=== PATIENT | female | born 1975 ===

== ENCOUNTER 2022-02-09 17:09 | Inpatient (IN) | payer OTHER ==
[~2022-02-09] VITALS: Ht 170.2 cm; Wt 77.1 kg
[2022-02-09] MEDS ORDERED: NEURONTIN800 MG (17:17)
[2022-02-09] MEDS ORDERED: HUMALOG100 UNIT/2 (17:17)
[2022-02-16] MEDS ORDERED: TRAMADOL HCL50 MG PO (09:59)
[2022-02-16] MEDS ORDERED: MORGIDOX100 MG PO (09:59)
== END 2022-02-16 11:46 | disposition home or self-care (01) | DRG 601 ==
LOC: ER 17:09 → MEDI 22:49 → SEC-K 23:51 → MEDI 23:57
PROVIDERS: ADMIT Internal Medicine; ATTEND Internal Medicine
PROC: BW24ZZZ Computerized Tomography (CT Scan) of Chest and Abdomen (ICD-10-PCS; principal; 2022-02-10)
DX: N61.0 Mastitis without abscess (principal); M79.7 Fibromyalgia; J44.9 Chronic obstructive pulmonary disease, unspecified; Z79.4 Long term (current) use of insulin; E11.65 Type 2 diabetes mellitus with hyperglycemia; Z20.822 Contact with and (suspected) exposure to COVID-19